=== PATIENT | female | born 1980 | race Asian ===

== ENCOUNTER 2017-10-05 00:15 | Inpatient (IN) | payer SELFPAY ==
[~2017-10-05] VITALS: Ht 158 cm; Wt 60.3 kg
[2017-10-05] MEDS ORDERED: LACTATED RINGERS 1,000 ML IV SCH (01:15)
[2017-10-05 01:44] LABS: APPEARANCE,URINE CLEAR (CLEAR); BILIRUBIN,URINE NEGATIVE (NEGATIVE); BLOOD, URINE NEGATIVE (NEGATIVE); COLOR,URINE YELLOW (YELLOW); LEUKOCYTE ESTERASE ,URINE TRACE (NEGATIVE); NITRITE, URINE NEGATIVE (NEGATIVE); PH,URINE 6.5 (5.0-9.0); UGLUCOSE NEGATIVE (NEGATIVE)
[2017-10-05 01:48] LABS: BASOPHILS % (AUTO) 0.3 % (0.0-2.0); EOSINOPHILS # (AUTO) 0.1 K/uL (0-0.4); EOSINOPHILS % (AUTO) 0.6 % (0.0-4.0); HEMATOCRIT 36.8 % (36-48); HEMOGLOBIN 12.3 g/dL (12.0-16.0); LYMPHOCYTES # (AUTO) 1.8 K/uL (2.5-16.5); LYMPHOCYTES % (AUTO) 17.1 % (20.5-51.1); MEAN CORPUSCULAR HEMOGLOBIN 31 pg (27-31); MEAN CORPUSCULAR HGB CONC 34 g/dL (33-37); MONOCYTES # (AUTO) 0.6 K/uL (0.8-1.0); MONOCYTES % (AUTO) 5.9 % (1.7-9.3); NEUTROPHILS # (AUTO) 7.9 K/uL (1.8-7.7); NEUTROPHILS % (AUTO) 76.1 % (42.2-75.2); PLATELET COUNT (AUTO) 293 K/uL (140-450); RED BLOOD CELL COUNT(AUTO) 3.96 MIL/uL (4.20-5.40); RED CELL DISTRIBUTION WIDTH 13.9 % (11.6-13.7); WHITE BLOOD COUNT (AUTO) 10.4 K/uL (4.8-10.8)
[2017-10-05 02:02] LABS: CARBON DIOXIDE 21.5 mmol/L (21-32); CREATININE 0.5 mg/dL (0.6-1.3); POTASSIUM 3.5 mmol/L (3.5-5.1)
[2017-10-05 02:07] LABS: ALBUMIN 2.4 g/dL (3.4-5.0); TOTAL BILIRUBIN 0.2 mg/dL (0.0-1.0)
[2017-10-05 02:34] VITALS: BP 110/66
[2017-10-05 02:41] LABS: RBC,URINE 0-5 (RARE) /HPF (0-5); WBC,URINE 0-5 (RARE) /HPF (0-5)
[2017-10-05] MEDS ORDERED: TEMAZEPAM 15 MG CAP PO PRN (06:40)
[2017-10-05] MEDS ORDERED: MEASLES, MUMPS, AND RUBELLA 1 VIAL SQVAC PRN (06:40)
[2017-10-05] MEDS ORDERED: oxyCODONE/APAP 5/325 MG 1 TAB TAB PO PRN (06:40)
[2017-10-05] MEDS ORDERED: METHYLERGONOVINE 0.2 MG/ML AMP IM PRN (06:40)
[2017-10-05] MEDS ORDERED: SIMETHICONE 80 MG TAB.CHEW PO PRN (06:40)
[2017-10-05] MEDS ORDERED: IBUPROFEN 800 MG TAB PO PRN (06:40)
[2017-10-05] MEDS ORDERED: HYDROcodone/APAP 5/325 MG 1 TAB TAB PO PRN (06:40)
[2017-10-05] MEDS ORDERED: TRIMETHOBENZAMIDE 200 MG/2 ML SYR IM PRN (06:40)
[2017-10-05] MEDS ORDERED: ceFAZolin 1,000 MG VIAL ONE (07:26)
[2017-10-05] MEDS ORDERED: TRIAMCINOLONE 40 MG/ML 5ML VIAL ONE (07:36)
[2017-10-05] MEDS ORDERED: OXYTOCIN 10 UNITS/ML VIAL ONE (07:36)
[2017-10-05] MEDS ORDERED: ONDANSETRON 4 MG/2 ML VIAL ONE (07:38)
[2017-10-05] MEDS ORDERED: METOCLOPRAMIDE 10 MG/2 ML INJ VIAL ONE ×2 (07:38→08:39)
[2017-10-05] MEDS ORDERED: MORPHINE PRES FREE 2 MG/2 ML 2 mL UD SYRINGE ONE (07:41)
[2017-10-05] MEDS ORDERED: BUPIVACAINE/DEXT 0.75% SPINAL 2 ML AMP INJ ONE (07:41)
[2017-10-05] MEDS ORDERED: OXYTOCIN 20 UNITS in LACTATED RINGERS 1,000 ML IV SCH (08:04)
[2017-10-05] MEDS ORDERED: NALOXONE 0.4 MG/ML VIAL IVP PRN ×2 (08:05)
[2017-10-05] MEDS ORDERED: ONDANSETRON 4 MG/2 ML VIAL IVP PRN (08:05)
[2017-10-05] MEDS ORDERED: KETOROLAC 30 MG/ML VIAL IVP PRN (08:05)
[2017-10-05] MEDS: diphenhydrAMINE 50 MG/ML VIAL IVP PRN ×2 (08:45→20:22)
[2017-10-05] MEDS ORDERED: diphenhydrAMINE 50 MG/ML VIAL ONE (08:46)
[2017-10-05] MEDS: OXYTOCIN 20 UNITS/LR PREMIX 1,000 ML IV ONE ×2 (09:00→09:17)
--- NOTE | 2017-10-05 09:05 | NUR ---
PATIENT HAS BEEN SCREENED AND CATEGORIZED LOW NUTRITION RISK. PATIENT WILL BE SEEN WITHIN 7 DAYS OF ADMISSION. 10/11/[address]
[2017-10-05] MEDS: OXYTOCIN 20 UNITS in LACTATED RINGERS 1,000 ML IV SCH (15:57)
[2017-10-05] MEDS ORDERED: DOCUSATE SOD/SENNA 50/8.6 MG 1 TAB PO SCH (21:00)
[2017-10-06] MEDS: OXYTOCIN 20 UNITS in LACTATED RINGERS 1,000 ML IV SCH (00:36)
[2017-10-06] MEDS ORDERED: HYDROcodone/APAP 5/325 MG 1 TAB TAB PO PRN (02:00)
[2017-10-06] MEDS ORDERED: oxyCODONE/APAP 5/325 MG 1 TAB TAB PO PRN (02:00)
[2017-10-06] MEDS ORDERED: TEMAZEPAM 15 MG CAP PO PRN (02:00)
[2017-10-06 06:42] LABS: BASOPHILS % (AUTO) 0.1 % (0.0-2.0); HEMATOCRIT 35.7 % (36-48); HEMOGLOBIN 11.8 g/dL (12.0-16.0); LYMPHOCYTES % (AUTO) 7.6 % (20.5-51.1); MEAN CORPUSCULAR HEMOGLOBIN 31 pg (27-31); MEAN CORPUSCULAR HGB CONC 33 g/dL (33-37); MONOCYTES % (AUTO) 3.7 % (1.7-9.3); NEUTROPHILS % (AUTO) 88.6 % (42.2-75.2); PLATELET COUNT (AUTO) 266 K/uL (140-450); RED BLOOD CELL COUNT(AUTO) 3.79 MIL/uL (4.20-5.40); RED CELL DISTRIBUTION WIDTH 14.3 % (11.6-13.7); WHITE BLOOD COUNT (AUTO) 17.6 K/uL (4.8-10.8)
[2017-10-06 06:43] LABS: LYMPHOCYTES # (AUTO) 1.3 K/uL (2.5-16.5); MONOCYTES # (AUTO) 0.7 K/uL (0.8-1.0); NEUTROPHILS # (AUTO) 15.6 K/uL (1.8-7.7)
[2017-10-06] MEDS: IBUPROFEN 800 MG TAB PO PRN ×2 (12:36→19:35)
[2017-10-07] MEDS: IBUPROFEN 800 MG TAB PO PRN (08:47)
== END 2017-10-07 15:45 | disposition home or self-care (01) | DRG 766 ==
LOC: MLD 00:15 → MFCC 07:40
PROVIDERS: ADMIT Obstetrics & Gynecology; ATTEND Obstetrics & Gynecology
PROC: 10D00Z1 Extraction of Products of Conception, Low, Open Approach (ICD-10-PCS; principal; 2017-10-05 08:45)
PROC: 3E0234Z Introduction of Serum, Toxoid and Vaccine into Muscle, Percutaneous Approach (ICD-10-PCS; 2017-10-07)
DX: O44.43 Low lying placenta NOS or without hemorrhage, third trimester (principal); Z37.0 Single live birth; Z3A.39 39 weeks gestation of pregnancy; Z23 Encounter for immunization
CPT/HCPCS: 36415; 51702; 80053; 81001; 85025; 86592; 86886; 86900; 86901; 87086; 90715; J0690; J1200; J2270; J2405; J2590; J2765; J3301; J3490; J7060; J7120